=== PATIENT | male | born 1930 | race Caucasian/White ===

== ENCOUNTER 2017-07-14 11:08 | Outpatient (CLI) | payer OTHER ==
[~2017-07-14 11:08] MED LIST: ATENOLOL25 MG PO; LEVOXYL100 MCG PO; LYRICA50 MG PO; PLAVIX75 MG PO; SIMVASTATIN10 MG PO; TAMBOCOR50 MG PO; VITAMIN D1000 UNIT PO
== END 2017-07-14 11:15 | disposition home or self-care (01) ==
LOC: RAD 501 11:08
DX: R06.02 Shortness of breath (principal)